=== PATIENT | male | born 1990 | race African-American/Black ===

== ENCOUNTER 2018-09-03 12:08 | Emergency (ER) | payer BC, SELFPAY ==
[2018-09-03 12:11] VITALS: BP 122/74; PULSE 94; RESP 14; TEMP 37; O2SAT 99; BMI 30.8
[2018-09-03 12:19] VITALS: PULSE 72
--- NOTE | 2018-09-03 12:52 | ED_ITS ---
HPI - Extremity Injury (Upper) <Nita Montaño PA-C - Last Filed: 09/03/18 16:21> General Chief Complaint: Extremity Injury, Upper Stated Complaint: RT ARM MUSCLE INJURY Time Seen by Provider: 09/03/18 12:30 Source: patient Mode of arrival: ambulatory Limitations: no limitations History of Present Illness HPI narrative: this healthy right-handed 27-year-old states that he did a workout yesterday including lifting, and woke up with a very painful the right arm this morning. He describes the pain as unbearable, increases trying to lift the arm. he states that the left arm was also little sore last night, but felt like normal soreness after working out, did not notice anything unusual until this morning, initially thought he might have slept awkwardly. He denies any weakness or paresthesia and states it is pain that keeps him from moving. He denies any neck pain or other new symptoms. He has not taken any medication for this, tried to stretch but is painful. Related Data Previous Rx's Medication Instructions Recorded lidocaine [Lidoderm] 1 patch TOP DAILY #30 each 09/03/18 meloxicam 15 mg PO DAILY #20 tab 09/03/18 Allergies Allergy/AdvReac Type Severity Reaction Status Date / Time No Known Drug Allergies Allergy Verified 09/03/18 12:14 Review of Systems <AURORA Soler Last Filed: 09/03/18 16:21> Review of Systems ROS Unobtainable: All systems reviewed & are unremarkable except as noted in HPI and below PFSH <AURORA Soler Last Filed: 09/03/18 16:21> Medical History No pertinent family history (Chronic) No pertinent past medical history (Chronic) Surgical History No pertinent past surgical history (Chronic) Social History Smoking Status: Former smoker Social History Smoking Status: Former smoker Comment: denies ETOH and street drugs Exam <AURORA Soler Last Filed: 09/03/18 16:21> Narrative Exam Narrative: GENERAL APPEARANCE: Patient sitting comfortably, in no distress. (Talking on cell phone) LUNGS: Clear to auscultation bilaterally. HEART: Rate and rhythm regular without murmur, normal S1 and S2, no S3 or S4. MUSCULOSKELETAL: No tenderness over the C-spine, full aROM. No tenderness over the left upper extremity, normal range of motion. No tenderness over the right shoulder. No tenderness from the Right elbow distal including the forearm, wrist, and hand where he has full range of motion. [employer] strength 5/5. he has mild tenderness over the right distal biceps insertion is, biceps muscle with normal contours and strength intact. He is exquisitely tender over the distal right triceps insertions and a little bit less so over the muscle body. Triceps strength appears to be intact against resistance on the right, but tender with resisted motion. NEUROVASCULAR: Right upper extremity is warm and pink with brisk cap refill, sensation grossly intact Initial Vital Signs Initial Vital Signs: Vital Signs Temperature 98.6 F 09/03/18 12:11 Pulse Rate 94 H 09/03/18 12:11 Respiratory Rate 14 09/03/18 12:11 Blood Pressure 122/74 09/03/18 12:11 Pulse Oximetry 99 09/03/18 12:11 <Jude Ojeda MD - Last Filed: 09/04/18 08:00> Initial Vital Signs Initial Vital Signs: Vital Signs Temperature 98.6 F 09/03/18 12:11 Pulse Rate 94 H 09/03/18 12:11 Respiratory Rate 14 09/03/18 12:11 Blood Pressure 122/74 09/03/18 12:11 Pulse Oximetry 99 09/03/18 12:11 Course <Nita Montaño PA-C - Last Filed: 09/03/18 16:21> Orders Ordered: Discontinued Medications Ibuprofen (Advil) 800 mg PO NOW ONE Stop: 09/03/18 12:50 Last Admin: 09/03/18 13:16 Dose: 800 mg Lidocaine (Lidoderm) 1 each TOP NOW ONE Stop: 09/03/18 12:50 Last Admin: 09/03/18 13:15 Dose: 1 each Vital Signs - 8 hr 09/03/18 12:11 09/03/18 12:19 09/03/18 13:19 Temperature 98.6 F Pulse Rate 94 H 87 Pulse Rate [Right Radial] 72 Respiratory Rate 14 16 Blood Pressure 122/74 Blood Pressure [Left Arm] 122/76 Pulse Oximetry 99 98 <Jude Ojeda MD - Last Filed: 09/04/18 08:00> Orders Ordered: Discontinued Medications Ibuprofen (Advil) 800 mg PO NOW ONE Stop: 09/03/18 12:50 Last Admin: 09/03/18 13:16 Dose: 800 mg Lidocaine (Lidoderm) 1 each TOP NOW ONE Stop: 09/03/18 12:50 Last Admin: 09/03/18 13:15 Dose: 1 each Vital Signs - 8 hr 09/03/18 12:11 09/03/18 12:19 09/03/18 13:19 Temperature 98.6 F Pulse Rate 94 H 87 Pulse Rate [Right Radial] 72 Respiratory Rate 14 16 Blood Pressure 122/74 Blood Pressure [Left Arm] 122/76 Pulse Oximetry 99 98 Discharge Plan Departure Patient Disposition: Home Clinical Impression: Tendinitis of right triceps Discharge Date/Time: 09/03/18 13:32 Interventions: ED Discharge Assessment Last Done: 09/03/18 13:30 Instructions: DI for Tendinitis Activity Restrictions/Additional Instructions: you appear to have tendinitis of the triceps muscle in your upper arm which is causing your pain. you can wear the pain patches for 12 hr daily. Please put 1 on in the morning and put the Derian wrap over it. Use the wrap to help with support (you should wear this all the time). Take the once daily anti- inflammatory/ pain reliever meloxicam ( not with other NSAIDs) to help with the pain. You can also add Tylenol as needed. Remember that this is going to take time to improve and you need to rest these muscles and tendons . Please call your insurance and get a referral to a local primary care provider so that you can be seen for follow-up and assess your progress. If you are not gradually improving, physical therapy may be helpful as well. Return as we talked about if you have any acutely worsening symptoms. Prescriptions: New meloxicam 15 mg tablet 15 mg PO DAILY Qty: 20 RF: 0 lidocaine [Lidoderm] 5 % adhesive patch,medicated 1 patch TOP DAILY Qty: 30 RF: 0 <Jude Ojeda MD - Last Filed: 09/04/18 08:00> [facility] Attestation: I was present in the ER at the time of this patient's care. I was available for verbal consultation or to evaluate the patient directly if needed. I agree with the assessment and treatment plan.
[2018-09-03] MEDS: LIDOCAINE PATCH 1 EACH ADH..PATCH TOP (13:15)
[2018-09-03] MEDS: IBUPROFEN 400 MG TABLET 800 MG PO (13:16)
[2018-09-03 13:19] VITALS: BP 122/76; PULSE 87; RESP 16; O2SAT 98
== END 2018-09-03 13:32 | disposition home or self-care (01) ==
PROVIDERS: Emergency Provider Internal Medicine
DX: M77.9 Enthesopathy, unspecified (principal); X50.0XXA Overexertion from strenuous movement or load, initial encounter
CPT/HCPCS: 99282; 99283